=== PATIENT | male | born 1960 | race Caucasian/White ===

== ENCOUNTER 2016-12-28 09:15 | Outpatient (CLI) | payer MEDICARE, MEDICAID ==
[2016-12-28 09:46] LABS: #Basophils 0.1 thou/uL (0.0-0.2); #Eosinphils 0.3 thou/uL (0.0-0.7); #Lymphocytes 2.8 thou/uL (1.20-3.40); #Monocytes 0.6 thou/uL (0.11-0.59); #Neutrophils 3.9 thou/uL (1.40-6.50); %Basophils 1.6 % (0.0-1.0); %Eosinophils 4.4 % (0.0-10.0); %Monocytes 7.4 % (0.0-10.0); %Neutrophils 50.5 % (42.0-75.0); Hemoglobin 13.1 g/dL (14.0-18.0); Mean Corpuscular HGB CONC 32.6 g/dL (32.0-36.0); Mean Corpuscular Hemoglobin 29.7 pg (27.0-31.0); Mean Corpuscular Volume 91.3 fl (80.0-94.0); Mean Platelet Volume 9.2 fL (7.4-10.4); Platelet Count 249 thou/uL (130-400); RBC Distribution Width 12.4 % (11.5-14.5); Red Blood Cell (RBC) Count 4.41 mill/uL (4.70-6.10); White Blood Cell (WBC) Count 7.6 thou/uL (4.8-10.8)
[2016-12-28 10:10] LABS: ALT (SGPT) 25 U/L (0-55); AST (SGOT) 21 U/L (5-34); Alkaline Phosphatase 84 U/L (40-150); Anion Gap 12 mmol/L (10-20); BUN (Urea Nitrogen) 14 mg/dL (8.4-25.7); Bilirubin, Total 0.3 mg/dL (0.2-1.2); Calc. Creatinine Clearance 0 mL/min (70-130); Calcium 9.1 mg/dL (7.8-10.44); Carbon Dioxide 30 mmol/L (22-29); Cardiac Risk 5.7 (Less than 4.5); Chloride 103 mmol/L (98-107); Cholesterol 194 mg/dL (< 200 Desired); Estimated GFR-MDRD 70; Globulin 2.5 g/dL (2.4-3.5); Glucose 109 mg/dL (70-105); HDL Cholesterol 34 mg/dL (>60 Neg Risk); LDL Cholesterol, Calculated 98 mg/dL; Potassium 4.3 mmol/L (3.5-5.1); Protein, Total 6.5 g/dL (6.0-8.3); Sodium 141 mmol/L (136-145); Triglycerides 308 mg/dL (Less than 150)
== END 2016-12-28 09:16 | disposition home or self-care (01) ==
LOC: MADLABBHPM 09:15
PROVIDERS: ATTEND Family Medicine
DX: E78.5 Hyperlipidemia, unspecified (principal); D64.9 Anemia, unspecified; E55.9 Vitamin D deficiency, unspecified
CPT/HCPCS: 36415; 80053; 80061; 82306; 85025

== ENCOUNTER 2017-07-06 08:49 | Outpatient (CLI) | payer MEDICAID, MEDICARE, OTHER ==
[2017-07-06 09:37] LABS: #Basophils 0.1 thou/uL (0.0-0.2); #Eosinphils 0.3 thou/uL (0.0-0.7); #Lymphocytes 2.4 thou/uL (1.20-3.40); #Monocytes 0.6 thou/uL (0.11-0.59); #Neutrophils 3.4 thou/uL (1.40-6.50); %Basophils 1.5 % (0.0-1.0); %Eosinophils 4.8 % (0.0-10.0); %Lymphocytes 35.2 % (21.0-51.0); %Monocytes 8.6 % (0.0-10.0); %Neutrophils 49.9 % (42.0-75.0); Hemoglobin 12.8 g/dL (14.0-18.0); Mean Corpuscular HGB CONC 32.1 g/dL (32.0-36.0); Mean Corpuscular Hemoglobin 29.8 pg (27.0-31.0); Mean Corpuscular Volume 92.7 fl (80.0-94.0); Mean Platelet Volume 10.2 fL (7.4-10.4); Platelet Count 209 thou/uL (130-400); RBC Distribution Width 13.2 % (11.5-14.5); White Blood Cell (WBC) Count 6.8 thou/uL (4.8-10.8)
[2017-07-06 10:03] LABS: ALT (SGPT) 31 U/L (8-55); AST (SGOT) 21 U/L (5-34); Albumin 3.9 g/dL (3.5-5.0); Alkaline Phosphatase 73 U/L (40-150); Anion Gap 12 mmol/L (10-20); BUN (Urea Nitrogen) 13 mg/dL (8.4-25.7); Bilirubin, Total 0.3 mg/dL (0.2-1.2); Calc. Creatinine Clearance 0 mL/min (70-130); Carbon Dioxide 27 mmol/L (22-29); Cardiac Risk 5.8 (Less than 4.5); Chloride 103 mmol/L (98-107); Cholesterol 196 mg/dl (< 200 Desired); Estimated GFR-MDRD 68; Globulin 2.7 g/dL (2.4-3.5); Glucose 105 mg/dL (70-105); HDL Cholesterol 34 mg/dL (>60 Neg Risk); LDL Cholesterol, Calculated 109 mg/dL; Potassium 4.1 mmol/L (3.5-5.1); Protein, Total 6.6 g/dL (6.0-8.3); Sodium 138 mmol/L (136-145); Triglycerides 264 mg/dL (Less than 150)
[2017-07-06 10:17] LABS: Thyroid Stimulating Hormone 1.2832 uIU/mL (0.35-4.94)
[2017-07-06 11:13] LABS: Vitamin D, 25 Hydroxy 23.3 ng/ml (> 30.0)
== END 2017-07-06 08:50 | disposition home or self-care (01) ==
LOC: MADLABBHPM 08:49
PROVIDERS: ATTEND Family Medicine
DX: E78.5 Hyperlipidemia, unspecified (principal); E66.9 Obesity, unspecified; F41.8 Other specified anxiety disorders; E55.9 Vitamin D deficiency, unspecified
CPT/HCPCS: 36415; 80053; 80061; 82306; 83036; 84443; 85025

== ENCOUNTER 2018-04-02 09:28 | Emergency (ER) | payer MEDICARE, MEDICAID ==
[2018-04-02] MEDS ORDERED: Ondansetron HCl/PF 4 MG/2 ML Vial ONE (09:53)
[2018-04-02] MEDS ORDERED: Famotidine In NaCl 20 mg/50 ml Premix Bag ONE (09:53)
[2018-04-02 10:09] LABS: Bilirubin Negative (Negative); Blood, Urine Negative (Negative); Clarity Clear (Clear); Glucose, Urine (Dipstick) Negative (Negative); Leukocyte Negative (Negative); Nitrite Negative (Negative); Protein, Urine (Dipstick) Negative (Neg-Trace); Urobilinogen 0.2 mg/dL (0.2-1.0); pH, Urine 5.5 (5.0-9.0)
[2018-04-02 10:23] LABS: BUN (Urea Nitrogen) 28 mg/dL (8.4-25.7); Calc. Creatinine Clearance 0 mL/min (70-130); Calcium 9.3 mg/dL (7.8-10.44); Chloride 99 mmol/L (98-107); Estimated GFR-MDRD 41; Sodium 133 mmol/L (136-145)
[2018-04-02 10:29] LABS: Hemoglobin 11.8 g/dL (14.0-18.0); White Blood Cell (WBC) Count 10.4 thou/uL (4.8-10.8)
[2018-04-02 10:30] LABS: MDiff Complete? YES; Manual Diff?? YES; Mean Corpuscular HGB CONC 32.8 g/dL (32.0-36.0); Mean Corpuscular Hemoglobin 29.6 pg (27.0-31.0); Mean Corpuscular Volume 90.1 fL (80.0-94.0); Mean Platelet Volume 8.5 fL (7.4-10.4); Platelet Count 278 thou/uL (130-400); RBC Distribution Width 12.6 % (11.5-14.5)
[2018-04-02 10:31] LABS: Band 5 % (5-11); Eosinophils 1 % (0-10); Lymphocytes 15 % (21-51); Monocytes 3 % (0-10); Neutrophil 76 % (42-75); PLT Morphology Comment Appears Adequate; RBC Morphology Normal
[2018-04-02 10:46] LABS: Anion Gap 16 mmol/L (10-20); Carbon Dioxide 22 mmol/L (22-29); Glucose 116 mg/dL (70-105); Potassium 4.1 mmol/L (3.5-5.1)
[2018-04-02] MEDS ORDERED: Iopamidol 370 76% 100 ML VIAL ONE (10:49)
--- NOTE | 2018-04-02 12:38 | CT ---
CT OF ABDOMEN AND PELVIS: DATE: 04/02/18. COMPARISON: None. HISTORY: Nausea, vomiting, diarrhea, right lower quadrant pain, and left lower quadrant pain. TECHNIQUE: Serial axial CT imaging obtained at 5 mm intervals from lung bases through the pubic symphysis with I V and oral contrast. Coronal reformatted imaging obtained. FINDINGS: There is mild linear increased density in the lingula and left lower lobe suggesting scar and/or volu me loss. There is a focal area of nodularity involving the medial aspect of the right lower lobe on axial imag e 2, coronal image 108, which measures in the 1.3 cm range on coronal imaging and 1.5 cm range on axi al imaging. No free intraperitoneal air or fluid. Hepatic parenchyma is diffusely hypodense suggesting a degree of steatosis. The pancreas, adrenal gl ands, spleen, gallbladder, and kidneys demonstrate no acute findings. There is a mild to moderate de gree of gastric distention. The appendix appears normal. There is no focal area of bowel inflammatory change, bowel wall thicken ing, or evidence of bowel obstruction. There is mild atherosclerotic calcification of the intrarenal abdominal aorta. There is no lymphaden opathy seen in the abdomen or the pelvis. The osseous structures demonstrate multilevel lower lumbar spine degenerative change. No worrisome l ytic or blastic bone lesion. IMPRESSION: 1. Nodular density seen in the medial right lower lobe which could be inflammatory/infectious in vera ure. This could be on the basis of malignancy/pulmonary nodule. Thus, a followup chest CT is advise d for full assessment in 4-6 weeks following treatment. 2. No evidence for bowel obstruction, free intraperitoneal air, or bowel inflammatory change. No ev idence for diverticulitis or appendicitis. CODE T POS: NAYELI
[2018-04-02] MEDS ORDERED: Ondansetron ODT 4 MG TAB ONE (12:54)
[2018-04-02] MEDS ORDERED: Sodium Chloride 0.9% 1,000 ML BAG ONE (13:54)
== END 2018-04-02 12:55 | disposition home or self-care (01) ==
LOC: MADERS 09:28
DX: R11.2 Nausea with vomiting, unspecified (principal); R19.7 Diarrhea, unspecified; E11.9 Type 2 diabetes mellitus without complications; E78.5 Hyperlipidemia, unspecified; K21.9 Gastro-esophageal reflux disease without esophagitis; I10 Essential (primary) hypertension; F32.9 Major depressive disorder, single episode, unspecified; Z79.899 Other long term (current) drug therapy
CPT/HCPCS: 74177; 80048; 81003; 82150; 85025; 96365; 96375; J2405; J7050; Q0162

== ENCOUNTER 2018-06-19 15:00 | Outpatient (CLI) | payer MEDICARE, MEDICAID ==
--- NOTE | 2018-06-19 16:20 | CT ---
CT CHEST WITH IV CONTRAST: 06/19/18 HISTORY: Lung nodule. Followup. COMPARISON: 04/02/18. FINDINGS: Scattered areas of mild scarring and atelectasis are apparent. At the right posterior medial lung bas e, a focal area of nodularity is similar in appearance to the previous study. The soft tissue compone nt measures up to 1.3 cm oblique diameter on today's axial images. There is subtle area of hyperdense focus centrally with the appearance of calcification. No other parenchymal lung mass is evident. No enlarged lymph nodes within the mediastinum. IMPRESSION: Stable CT appearance of the nodular infiltrate at the right posterior medial lung base. There is sugg estion of central calcification which would indicate a benign process. Please consider followup CT in six months to evaluate for stability. POS: NAYELI
== END 2018-06-19 15:01 | disposition home or self-care (01) ==
LOC: MADCT 15:00
PROVIDERS: ATTEND Family Medicine
DX: R91.1 Solitary pulmonary nodule (principal); R91.8 Other nonspecific abnormal finding of lung field
CPT/HCPCS: 36415; 71260; 82565

== ENCOUNTER 2018-11-08 14:16 | Outpatient (CLI) | payer MEDICARE, OTHER ==
[2018-11-08 14:55] LABS: Anion Gap 15 mmol/L (10-20); BUN (Urea Nitrogen) 15 mg/dL (8.4-25.7); Calc. Creatinine Clearance 0 mL/min (70-130); Calcium 9.7 mg/dL (7.8-10.44); Carbon Dioxide 23 mmol/L (22-29); Chloride 106 mmol/L (98-107); Estimated GFR-MDRD 64; Glucose 108 mg/dL (70-105); Potassium 3.8 mmol/L (3.5-5.1); Sodium 140 mmol/L (136-145)
== END 2018-11-08 14:17 | disposition home or self-care (01) ==
LOC: MADLAB 14:16
PROVIDERS: ATTEND Internal Medicine Nephrology
DX: N18.3 Chronic kidney disease, stage 3 (moderate) (principal)
CPT/HCPCS: 36415; 80048

== ENCOUNTER 2018-11-26 14:25 | Emergency (ER) | payer MEDICARE, OTHER, MEDICAID | END 2018-11-26 17:35 | disposition home or self-care (01) | LOC: MADERS 14:25 | DX: K02.9 Dental caries, unspecified (principal); E78.5 Hyperlipidemia, unspecified; K21.9 Gastro-esophageal reflux disease without esophagitis; I10 Essential (primary) hypertension; F42.9 Obsessive-compulsive disorder, unspecified; E11.9 Type 2 diabetes mellitus without complications; Z79.899 Other long term (current) drug therapy | CPT/HCPCS: 99281 ==

== ENCOUNTER 2019-01-01 08:41 | Outpatient (CLI) | payer MEDICARE, OTHER ==
[2019-01-01 09:18] LABS: ALT (SGPT) 49 U/L (8-55); AST (SGOT) 32 U/L (5-34); Albumin 4.1 g/dL (3.5-5.0); Alkaline Phosphatase 75 U/L (40-150); Anion Gap 15 mmol/L (10-20); BUN (Urea Nitrogen) 13 mg/dL (8.4-25.7); Bilirubin, Total 0.3 mg/dL (0.2-1.2); Calc. Creatinine Clearance 0 mL/min (70-130); Calcium 9.5 mg/dL (7.8-10.44); Carbon Dioxide 25 mmol/L (22-29); Cardiac Risk 6.4 (Less than 4.5); Chloride 105 mmol/L (98-107); Cholesterol 211 mg/dl (< 200 Desired); Estimated GFR-MDRD 59; Globulin 2.7 g/dL (2.4-3.5); Glucose 103 mg/dL (70-105); HDL Cholesterol 33 mg/dL (>60 Neg Risk); LDL Cholesterol, Calculated 109 mg/dL; Protein, Total 6.8 g/dL (6.0-8.3); Sodium 141 mmol/L (136-145); Triglycerides 347 mg/dL (Less than 150)
[2019-01-01 09:49] LABS: #Basophils 0.1 thou/uL (0.0-0.2); #Eosinphils 0.3 thou/uL (0.0-0.7); #Lymphocytes 2.1 thou/uL (1.20-3.40); #Monocytes 0.6 thou/uL (0.11-0.59); #Neutrophils 3.6 thou/uL (1.40-6.50); %Basophils 1.5 % (0.0-1.0); %Eosinophils 4.6 % (0.0-10.0); %Lymphocytes 31.2 % (21.0-51.0); %Monocytes 8.8 % (0.0-10.0); %Neutrophils 53.9 % (42.0-75.0); Hemoglobin 12.3 g/dL (14.0-18.0); Mean Corpuscular HGB CONC 31.4 g/dL (32.0-36.0); Mean Corpuscular Hemoglobin 29.3 pg (27.0-31.0); Mean Corpuscular Volume 93.3 fL (78.0-98.0); Mean Platelet Volume 8.1 fL (7.4-10.4); Platelet Count 243 thou/uL (130-400); RBC Distribution Width 13.6 % (11.5-14.5); Red Blood Cell (RBC) Count 4.21 mill/uL (4.70-6.10); White Blood Cell (WBC) Count 6.6 thou/uL (4.8-10.8)
[2019-01-01] MEDS ORDERED: Iopamidol 370 76% 100 ML VIAL ONE (11:15)
--- NOTE | 2019-01-01 11:21 | CT ---
CT CHEST WITH IV CONTRAST: Date: 01-01-19 Provided Clinical History: Pulmonary nodule. FINDINGS: Comparison is made with the examination dated 06-19-18 and 04-02-18. The heart, pericardium, and great vessels demonstrate an unremarkable CT appearance with the exceptio n of minimal coronary calcium. There is no evidence for thoracic lymph node enlargement. The airway appears patent and of normal caliber. Somewhat nodular consolidation within the medial right lower lobe is again identified with surroundin g small nodules. These appear unchanged in size. There is increased density within the large central component. The lungs are otherwise free of significant opacity. There is no pleural fluid or pneumothorax apparent. The visualized portions of the upper abdomen appear unremarkable. The osseous structures demonstrate no concerning osteoblastic or osteolytic lesions. IMPRESSION: Stable exam. Additional 6 month follow up is recommended. POS: [facility]
== END 2019-01-01 08:42 | disposition home or self-care (01) ==
LOC: MADLABBHPM 08:41
PROVIDERS: ATTEND Family Medicine
DX: I12.9 Hypertensive chronic kidney disease with stage 1 through stage 4 chronic kidney disease, or unspecified chronic kidney disease (principal); N18.3 Chronic kidney disease, stage 3 (moderate); E55.9 Vitamin D deficiency, unspecified; F41.8 Other specified anxiety disorders; R91.1 Solitary pulmonary nodule
CPT/HCPCS: 36415; 71260; 80053; 80061; 82306; 85025; Q9967

== ENCOUNTER 2019-06-25 10:35 | Outpatient (CLI) | payer MEDICARE, OTHER ==
[~2019-06-25 10:35] MED LIST: Iopamidol 370 76% 100 ML VIAL ONE
--- NOTE | 2019-06-25 11:52 | CT ---
CT CHEST WITH CONTRAST: INDICATION: Followup pulmonary nodule. COMPARISON: Comparison is made to a chest CT of 01/01/2019. FINDINGS: Irregularly shaped nodular opacity in the posterior right lower lobe is again noted. This appears st able from prior exam with measurements in the axial plane at 1.7 cm in maximal measurement in the cor onal plane and approximately 2.0 cm. There continues to be stranding in the right middle lobe and both posterior lung bases which appear s table. No new mass, nodule, or infiltrate seen. No effusion. Mediastinum unremarkable. Images thr ough the upper abdomen unremarkable. IMPRESSION: The nodular opacity in the posterior right lower lobe remain stable from 01/01/2019. This is also not ed to be stable from 06/19/2018. Followup noncontrast chest CT in 6-12 months is recommended. POS: NAYELI
== END 2019-06-25 10:36 | disposition home or self-care (01) ==
LOC: MADCT 10:35
PROVIDERS: ATTEND Family Medicine
DX: R91.1 Solitary pulmonary nodule (principal); R91.8 Other nonspecific abnormal finding of lung field
CPT/HCPCS: 71260; Q9967

== ENCOUNTER 2020-01-22 15:16 | Emergency (ER) | payer MEDICARE, MEDICAID ==
--- NOTE | 2020-01-22 16:41 | RAD ---
XR Foot Rt 3 View STANDARD HISTORY: Injury, right foot pain FINDINGS: No fracture or dislocation is identified.
== END 2020-01-22 17:15 | disposition home or self-care (01) ==
LOC: MADERS 15:16
DX: S93.501A Unspecified sprain of right great toe, initial encounter (principal); E11.9 Type 2 diabetes mellitus without complications; K21.9 Gastro-esophageal reflux disease without esophagitis; E78.5 Hyperlipidemia, unspecified; E78.00 Pure hypercholesterolemia, unspecified; I10 Essential (primary) hypertension; X58.XXXA Exposure to other specified factors, initial encounter; Y93.02 Activity, running
CPT/HCPCS: 90853

== ENCOUNTER 2020-04-27 14:46 | Emergency (ER) | payer MEDICARE, MEDICAID ==
[2020-04-27] MEDS ORDERED: Clindamycin/D5W 600 mg/50 ml Premix Bag ONE (15:59)
== END 2020-04-27 17:11 | disposition home or self-care (01) ==
LOC: MADERS 14:46
DX: K04.7 Periapical abscess without sinus (principal); L03.211 Cellulitis of face; E11.9 Type 2 diabetes mellitus without complications; E78.5 Hyperlipidemia, unspecified; E78.00 Pure hypercholesterolemia, unspecified; K21.9 Gastro-esophageal reflux disease without esophagitis; I10 Essential (primary) hypertension; F32.9 Major depressive disorder, single episode, unspecified; F42.9 Obsessive-compulsive disorder, unspecified; Z79.899 Other long term (current) drug therapy
CPT/HCPCS: 96365; J3490

== ENCOUNTER 2021-03-02 09:58 | Outpatient (CLI) | payer MEDICARE, MEDICAID ==
[2021-03-02 10:51] LABS: ALT (SGPT) 37 U/L (8-55); AST (SGOT) 24 U/L (5-34); Alkaline Phosphatase 86 U/L (40-110); Anion Gap 15 mmol/L (10-20); BUN (Urea Nitrogen) 13 mg/dL (8.4-25.7); Bilirubin, Total 0.3 mg/dL (0.2-1.2); Calc. Creatinine Clearance 0 mL/min (70-130); Calcium 9.4 mg/dL (7.8-10.44); Carbon Dioxide 28 mmol/L (22-29); Cardiac Risk 4.9 (Less than 4.5); Chloride 101 mmol/L (98-107); Cholesterol 167 mg/dl (< 200 Desired); Globulin 2.9 g/dL (2.4-3.5); Glucose 173 mg/dL (70-105); HDL Cholesterol 34 mg/dL (>60 Neg Risk); LDL Cholesterol, Calculated 62 mg/dL; Potassium 3.5 mmol/L (3.5-5.1); Protein, Total 6.9 g/dL (6.0-8.3); Sodium 140 mmol/L (136-145); Triglycerides 357 mg/dL (Less than 150)
[2021-03-02 10:55] LABS: #Basophils 0.1 thou/uL (0.0-0.2); #Eosinphils 0.3 thou/uL (0.0-0.7); #Lymphocytes 2.8 thou/uL (1.20-3.40); #Monocytes 0.5 thou/uL (0.11-0.59); #Neutrophils 4.7 thou/uL (1.40-6.50); %Basophils 0.9 % (0.0-1.0); %Eosinophils 3.2 % (0.0-10.0); %Lymphocytes 33.7 % (21.0-51.0); %Monocytes 6.3 % (0.0-10.0); %Neutrophils 55.9 % (42.0-75.0); Hemoglobin 13.2 g/dL (14.0-18.0); Mean Corpuscular Hemoglobin 29.2 pg (27.0-31.0); Mean Corpuscular Volume 94.2 fL (78.0-98.0); Mean Platelet Volume 9.5 fL (7.4-10.4); Platelet Count 262 thou/uL (130-400); RBC Distribution Width 13.9 % (11.5-14.5); Red Blood Cell (RBC) Count 4.51 mill/uL (4.70-6.10); White Blood Cell (WBC) Count 8.4 thou/uL (4.8-10.8)
[2021-03-02 10:59] LABS: Thyroid Stimulating Hormone 1.5426 uIU/mL (0.35-4.94)
[2021-03-02 17:12] LABS: Hemoglobin A1c 7.2 % (4.0-6.0)
[2021-03-02 18:07] LABS: Vitamin D, 25 Hydroxy 38.1 ng/ml (> 30.0)
== END 2021-03-02 09:59 | disposition home or self-care (01) ==
LOC: MADCT 09:58
PROVIDERS: ATTEND Family Medicine
DX: R91.1 Solitary pulmonary nodule (principal); E55.9 Vitamin D deficiency, unspecified; E78.5 Hyperlipidemia, unspecified; N18.30 Chronic kidney disease, stage 3 unspecified; F31.9 Bipolar disorder, unspecified; R63.5 Abnormal weight gain; Z68.41 Body mass index [BMI] 40.0-44.9, adult; E66.01 Morbid (severe) obesity due to excess calories
CPT/HCPCS: 36415; 71260; 80053; 80061; 82306; 83036; 84443; 85025; Q9967

== ENCOUNTER 2021-07-08 11:57 | Outpatient (CLI) | payer MEDICARE, MEDICAID | END 2021-07-08 11:58 | disposition home or self-care (01) | LOC: MADRAD 11:57 | PROVIDERS: ATTEND Family Medicine | DX: M25.561 Pain in right knee (principal); M25.761 Osteophyte, right knee ==

== ENCOUNTER 2023-10-05 10:02 | Emergency (ER) | payer MEDICARE, MEDICAID | END 2023-10-05 12:05 | disposition home or self-care (01) | LOC: MADERS 10:02 | DX: J20.9 Acute bronchitis, unspecified (principal); E11.9 Type 2 diabetes mellitus without complications; E78.00 Pure hypercholesterolemia, unspecified; K21.9 Gastro-esophageal reflux disease without esophagitis; I10 Essential (primary) hypertension; Z79.899 Other long term (current) drug therapy | CPT/HCPCS: 71045; 87804; 93005 ==